=== PATIENT | female | born 1995 | race Caucasian/White ===

== ENCOUNTER → 2022-01-27 15:04 | Outpatient (CLI) | payer OTHER, SELFPAY ==
[2022-01-27 15:38] LABS: Add Manual Diff / Slide Review NO; Basophils Absolute Auto 0 /uL (0-100); Basophils Percent Auto 0.2 % (0-2); Eosinophils Absolute Auto 100 /uL (0-450); Eosinophils Percent Auto 1.4 % (2-4); Hematocrit 35.1 % (36-46); Hemoglobin 12.1 g/dL (12.0-16.0); Lymphocytes Absolute Auto 900 /uL (1100-4500); Lymphocytes Percent Auto 11.4 % (25-40); Mean Corpuscular HGB Conc 34.6 % (30-36); Mean Corpuscular Hemoglobin 30.2 PG (26-34); Mean Corpuscular Volume 87.2 fL (80-100); Monocytes Absolute Auto 500 /uL (0-900); Monocytes Percent Auto 6.7 % (3-14); Neutrophils Absolute Auto 6400 /uL (1500-7000); Neutrophils Percent Auto 80.3 % (50-75); Platelet Count 238 X10^3/uL (150-400); Red Blood Cell Count 4.02 X10^6/uL (4.0-5.2); Red Cell Distribution Width 13.5 % (11.6-14.8)
[2022-01-27 16:30] LABS: Appearance Urine UA CLEAR; Bilirubin Urine UA NEGATIVE (NEGATIVE); Color Urine UA YELLOW; Glucose Urine UA NEGATIVE (Negative); Ketones Urine UA NEGATIVE (NEGATIVE); Leukocyte Esterase Urine UA NEGATIVE (NEGATIVE); Nitrite Urine UA NEGATIVE (Negative); Occult Blood Urine UA NEGATIVE (Negative); Protein Urine UA NEGATIVE (Negative); Specific Gravity Urine UA <=1.005 (1.000-1.035); Urobilinogen Urine UA 0.2 E.U./dL (0.2)
[2022-01-27 16:31] LABS: pH Urine UA 6.5 (4.5-8.0)
[2022-01-28 08:06] LABS: RPR Screen Non Reactive (Non Reactive)
[2022-01-28 08:09] LABS: Varicella IgG Antibody 309 index (Immune >165)
[2022-01-28 17:29] LABS: HIV 1 & 2 Ab/Ag 4th Gen Combo NEGATIVE (NEGATIVE); Hep C Virus Ab w/Reflex Quant NEGATIVE s/c (NEGATIVE); Hepatitis B Surface Antigen NEGATIVE s/c (NEGATIVE)
== END ==
PROVIDERS: Referring Provider Family Medicine; Visit Provider Family Medicine
DX: Z34.01 Encounter for supervision of normal first pregnancy, first trimester (principal)
CPT/HCPCS: 36415; 80055; 81003; 86787; 86803; 86850; 86900; 86901; 87086; 87389

== ENCOUNTER → 2022-02-18 11:29 | Outpatient (CLI) | payer OTHER, SELFPAY ==
--- NOTE | 2022-02-18 11:29 | DI.US.S_ITS ---
PROCEDURE: US OB >= 14 WEEKS FETUS INDICATIONS: ANATOMY SCREEN OUTSIDE/PRIOR DATING DATA: Last menstrual period (LMP): 10/11/2021. LMP-based estimated date of delivery (CHECO): 07/18/2022. First dating scan (date and location): This exam. Estimated date of delivery (CHECO) from first dating scan: 07/15/2022. TECHNIQUE: Real-time scanning was performed of the fetus, with image documentation and biometric measurements. Endovaginal scanning: Not performed. COMPARISON: None. FINDINGS: General: A single living intrauterine gestation is present. Presentation: Variable. Placenta: Placental position is posterior. Question low-lying placenta. Amniotic fluid index: 11.0 cm, normal range is 5-24 cm. Single deepest vertical pocket is 3.0 cm. heart rate: 143 beats per minute. Maternal cervical canal: 4.5 cm long. Normal lower limit is 2.5 cm. biometrics: Biparietal diameter: 19 weeks 6 days Head circumference: 19 weeks 1 day Abdominal circumference: 18 weeks 6 days Femur length: 18 weeks 2 days Clinically estimated gestational age: 18 weeks 4 days Composite gestational age from present scan: 19 weeks 0 day Estimated weight and percentile: 252; 52% Anatomic survey: Neuro: Ventricles are non-dilated at less than 10 mm. Cisterna magna is normal at 3-11 mm. Cerebellum is normal in size and morphology. Nuchal skin fold: Normal at less than 6 mm between 14-21 weeks gestational age. Face: Suboptimally visualized. Spine: No evidence for spina bifida. Heart: Suboptimally visualized. Diaphragm: Suboptimally seen. Stomach: Left-sided stomach is present. Kidneys: No hydronephrosis. Normal is less than 5 mm in 2nd trimester, less than 7 mm in 3rd trimester. Cord: Suboptimally seen. Bladder: Normal in size. Extremities: Suboptimally seen. IMPRESSION: 1. A single living intrauterine gestation with ultrasound dating concordant with clinical dating. 2. Question low-lying placenta. Recommend follow-up imaging. 3. Limited anatomic survey due to maternal body habitus and position. We strive to produce accurate, complete, and clear reports of imaging services. To assist us in improving patient care, this report was composed using standard report templates and voice recognition software. Therefore, it may contain abnormal punctuation, insertions and/or omissions. Occasional wrong-word or sound-alike substitutions may occur. Though we review the report and make efforts to correct it, we do recommend that the report be read carefully in proper context to recognize any text inaccuracies. Dictated by: Nicola Worthington M.D. on 02/18/2022 at 14:54 Approved by: Nicola Worthington M.D. on 02/18/2022 at 15:01
== END ==
PROVIDERS: Referring Provider Family Medicine; Visit Provider Family Medicine
DX: Z34.92 Encounter for supervision of normal pregnancy, unspecified, second trimester (principal); Z3A.19 19 weeks gestation of pregnancy
CPT/HCPCS: 76811

== ENCOUNTER → 2022-03-09 13:41 | Outpatient (CLI) | payer OTHER, SELFPAY ==
--- NOTE | 2022-03-09 13:43 | DI.US.S_ITS ---
PROCEDURE: US OB FOLLOW UP INDICATIONS: FOLLOW UP ANATOMY OUTSIDE/PRIOR DATING DATA: Last menstrual period (LMP): 10/11/2021. LMP-based estimated date of delivery (CHECO): 07/18/2022. First dating scan (date and location): No 1st trimester ultrasound. Estimated date of delivery (CHECO) from first dating scan: N/A The calculations are made using the LMP CHECO of 07/18/2022. TECHNIQUE: Real-time scanning was performed of the fetus, with image documentation and biometric measurements. Endovaginal scanning: Not performed COMPARISON: [facility], OB >= 14 WEEKS FETUS, 02/18/2022, 12:32. FINDINGS: General: A single living intrauterine gestation is present. Presentation: Breech. Placenta: Placental position is posterior , without previa. Amniotic fluid index: 15.9 cm, normal range is 5-24 cm. Single deepest vertical pocket is 5.6 cm. heart rate: 143 beats per minute. Maternal cervical canal: 3.8 cm long. Normal lower limit is 2.5 cm. Clinically estimated gestational age: 21 weeks 2 days Other: Profile, face, orbits, nose and lips, four-chamber heart, RVOT, LVOT, cord insertion, placental cord insertion, diaphragm, stomach, and extremities appear within normal limits. There is no evidence of low lying placenta. Technically difficult study. IMPRESSION: 1. Living 2nd trimester intrauterine . 2. This study found no abnormalities, and completed a normal anatomy survey. 3. Technically difficult study. We strive to produce accurate, complete, and clear reports of imaging services. To assist us in improving patient care, this report was composed using standard report templates and voice recognition software. Therefore, it may contain abnormal punctuation, insertions and/or omissions. Occasional wrong-word or sound-alike substitutions may occur. Though we review the report and make efforts to correct it, we do recommend that the report be read carefully in proper context to recognize any text inaccuracies. Dictated by: Jamil Ocampo M.D. on 03/09/2022 at 17:09 Approved by: Jamil Ocampo M.D. on 03/09/2022 at 17:14
== END ==
PROVIDERS: PCP Family Medicine; Referring Provider Family Medicine; Visit Provider Family Medicine
DX: Z36.2 Encounter for other antenatal screening follow-up (principal); Z3A.21 21 weeks gestation of pregnancy
CPT/HCPCS: 76816

== ENCOUNTER → 2022-04-21 07:30 | Outpatient (CLI) | payer OTHER, SELFPAY ==
[2022-04-21 09:44] LABS: Add Manual Diff / Slide Review NO; Basophils Absolute Auto 0 /uL (0-100); Basophils Percent Auto 0.2 % (0-2); Eosinophils Absolute Auto 100 /uL (0-450); Eosinophils Percent Auto 1.5 % (2-4); Hematocrit 33.1 % (36-46); Hemoglobin 11.4 g/dL (12.0-16.0); Lymphocytes Absolute Auto 700 /uL (1100-4500); Lymphocytes Percent Auto 7.9 % (25-40); Mean Corpuscular HGB Conc 34.6 % (30-36); Mean Corpuscular Hemoglobin 30.6 PG (26-34); Mean Corpuscular Volume 88.5 fL (80-100); Monocytes Absolute Auto 500 /uL (0-900); Monocytes Percent Auto 5.5 % (3-14); Neutrophils Absolute Auto 7700 /uL (1500-7000); Neutrophils Percent Auto 84.9 % (50-75); Platelet Count 266 X10^3/uL (150-400); Red Blood Cell Count 3.74 X10^6/uL (4.0-5.2); Red Cell Distribution Width 14.3 % (11.6-14.8); White Blood Cell Count 9.1 X10^3/uL (4.5-11.0)
[2022-04-21 10:22] LABS: GTT (PREG) 1 Hour PP 50gm Dose 115 mg/dL (76-139)
== END ==
PROVIDERS: PCP Family Medicine; Referring Provider Family Medicine; Visit Provider Family Medicine
DX: Z34.90 Encounter for supervision of normal pregnancy, unspecified, unspecified trimester (principal); Z3A.26 26 weeks gestation of pregnancy
CPT/HCPCS: 36415; 82950; 85025

== ENCOUNTER → 2022-05-28 13:11 | Outpatient (CLI) | payer OTHER, SELFPAY ==
[2022-05-28 14:21] LABS: Add Manual Diff / Slide Review NO; Basophils Absolute Auto 0 /uL (0-100); Basophils Percent Auto 0.2 % (0-2); Eosinophils Absolute Auto 100 /uL (0-450); Hemoglobin 11.8 g/dL (12.0-16.0); Lymphocytes Absolute Auto 900 /uL (1100-4500); Lymphocytes Percent Auto 9.1 % (25-40); Mean Corpuscular HGB Conc 33.6 % (30-36); Mean Corpuscular Hemoglobin 29.4 PG (26-34); Mean Corpuscular Volume 87.6 fL (80-100); Monocytes Absolute Auto 800 /uL (0-900); Monocytes Percent Auto 8.2 % (3-14); Neutrophils Absolute Auto 8000 /uL (1500-7000); Neutrophils Percent Auto 81.5 % (50-75); Platelet Count 233 X10^3/uL (150-400); Red Blood Cell Count 3.99 X10^6/uL (4.0-5.2); Red Cell Distribution Width 14.6 % (11.6-14.8); White Blood Cell Count 9.8 X10^3/uL (4.5-11.0)
[2022-05-28 14:26] LABS: Alanine Aminotransferase 18 IU/L (<35); Albumin 3.5 g/dL (3.5-5.0); Albumin Globulin Ratio 1.1 (1.0-2.8); Alkaline Phosphatase 105 U/L (38-126); Aspartate Aminotransferase 22 IU/L (14-36); Bilirubin Total 0.2 mg/dL (0.2-1.3); Blood Urea Nitrogen 7 mg/dL (7-17); Calcium 8.6 mg/dL (8.4-10.2); Carbon Dioxide 21 mmol/L (22-32); Chloride 105 mmol/L (98-107); Estimated Glomerular Filt Rate > 60 mL/min (>60); Globulin 3.3 g/dL (1.7-4.1); Glucose 127 mg/dL (70-100); HEMOLYSIS < 15 (0-50); Potassium 3.9 mmol/L (3.4-5.1); Sodium 133 mmol/L (137-145); Total Protein 6.8 g/dL (6.3-8.2)
[2022-05-28 15:30] LABS: Protein (Total) Urine Random 11 mg/dL (0-12)
== END ==
PROVIDERS: PCP Family Medicine; Referring Provider Family Medicine; Visit Provider Family Medicine
DX: O16.9 Unspecified maternal hypertension, unspecified trimester (principal)
CPT/HCPCS: 36415; 80053; 82570; 84156; 85025

== ENCOUNTER → 2022-06-23 16:21 | Outpatient (CLI) | payer OTHER, SELFPAY ==
[2022-06-24 16:04] LABS: Strep Grp B PCR POS for Grp B Strep
== END ==
PROVIDERS: PCP Family Medicine; Visit Provider Family Medicine
DX: Z36.85 Encounter for antenatal screening for Streptococcus B (principal)
CPT/HCPCS: 87653

== ENCOUNTER 2022-07-20 06:57 | Inpatient (IN) | payer OTHER, SELFPAY ==
--- NOTE | 2022-07-20 07:51 | P.HPOB_ITS ---
OB HPI Date/Time Date of admission: 07/20/22 Date Patient Seen: 07/20/22 Time Patient Seen: 07:52 History of Present Condition Chief complaint: INDUCTION : 1 Para: 0 Narrative: Irina Castillo is a 27 year old primigravida admitted now at 40+1 weeks EGA for induction due to intermittently elevated systolic BP and peripheral edema. PIH/PEC labs have been negative thus far and her BP's haven't met criteria for gestational HTN. PNC has been largely unremarkable with firm dating and appropriate milestones. GBS is positive. Indications Indication for induction OB: other (Elective) History of Present care: good care Dating criteria: LMP confirmed by 1st trimester US Ultrasounds: normal 1st trimester US and normal mid trimester US Obstetrical complications: other (Intermittent elevation of systolic blood pressure, edema) Medical complications: none Preadmission Labs Blood type: O (+) positive -: Antibody screen: negative, GBS status: positive, HBsAG: negative, HIV: negative and RPR/VDLR: negative -: Chlamydia screen: not detected and Gonorrhea screen: not detected -: Rubella: immune and Varicella: immune HCT: 35.0 HCAB: negative PAP: Normal Quad screen: Normal 1 hr GTT: 115 Prior (ies) History: N/A Evaluation Evaluation Baseline heart rate: 130 Variability: Moderate (11-25) monitor accelerations: Present Monitor Decelerations: Absent Category of Tracing: Reactive Dilation (cm): 3 Effacement (%): 80 Dilation: 3-4 cm Effacement: >/=80% station: -3 Position of cervix: posterior Consistency: soft Ross score: 7 [facility] Surgical History (Updated 12/15/21 @ 15:19 by Bria Jackson RN) History of tonsillectomy Family History (Updated 12/15/21 @ 15:17 by Bria Jackson RN) Grandmother Ovarian cyst Mother Ovarian torsion Family/Other FH: multiple miscarriages or stillbirths Social History marital status: number of children: 0 household members: spouse lives independently: Yes housing: house pets and animals: Yes (3 dogs, 2 cats. 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[facility]) special jonas needs: No travel history: recent seatbelt use: always helmet use: Yes water heater temp set < 120 deg: Yes (Will check and adjust if needed ) working smoke detector in home: Yes fire extinguisher in home: Yes carbon monox detector in home: Yes firearms in home: Yes firearms unloaded and locked: Yes do you feel safe at home: Yes Smoking Status: Former smoker second hand exposure: No alcohol intake: former substance use type: does not use during the past year weight has: remained stable well-balanced diet: daily or most days daily servings fruits/ve-4 caffeine: Yes Type(s) of exercise: walking Meds Home Medications and Allergies Home Medications Medication Instructions Recorded Confirmed Type omega 1-wig-zor-fish oil 300 1 cap PO DAILY 12/15/21 06/30/22 History mg-1,000 mg capsule (Fish Oil) prenat.vits,sarai,izr-cnhg-avagc 1 tab PO DAILY 12/15/21 06/30/22 History pyridoxine (vitamin B6) 25 mg 25 mg PO BID 12/15/21 06/30/22 History tablet Allergies Allergy/AdvReac Type Severity Reaction Status Date / Time No Known Allergies Allergy Verified 06/30/22 16:27 OB Exam HENND Head: normal to inspection, normocephalic and atraumatic Eyes General: appearance normal, both eyes and all related structures Resp Effort & Inspection: normal respiratory effort and able to speak in complete sentences Auscultation: clear to auscultation bilaterally Cardio Rate: regular rate Rhythm: regular rhythm Heart Sounds: S1 normal, S2 normal and no murmurs Extremities Lower extremity: Yes normal to inspection GI Inspection: normal to inspection Palpation: Yes soft, Yes no hepatosplenomegaly and No tender Uterus Location (Fundal Height): 37 Estimated Weight (lbs): 8 Objective Labs Result Diagrams: 07/20/22 08:30 Assessment and Plan Assessment and Plan Assessment and Plan narrative: ASSESSMENT 1. Intrauterine , maria, vertex, 40+1 wks EGA 2. Edema 3. GBS + 4. Intermittently elevated systolic BP; no evidence of PEC PLAN 1. Admit for ripening/induction per Dr. Castelan's plan 2. GBS prophylaxis 3. Will initiate ripening w/ PO Cervidil so she can continue to take in PO then transition to Pitocin when BS more favorable 4. PEC/PIH labs: PLT 200k, LFT's normal, Uric Acid 5.8, Prot:Creat ratio .2 5. See orders
[2022-07-20 08:29] VITALS: BP 135/78
[2022-07-20 08:52] LABS: Add Manual Diff / Slide Review NO; Basophils Absolute Auto 100 /uL (0-100); Basophils Percent Auto 1.2 % (0-2); Eosinophils Absolute Auto 200 /uL (0-450); Eosinophils Percent Auto 1.6 % (2-4); Hematocrit 36.4 % (36-46); Hemoglobin 12.1 g/dL (12.0-16.0); Lymphocytes Absolute Auto 700 /uL (1100-4500); Lymphocytes Percent Auto 7.6 % (25-40); Mean Corpuscular HGB Conc 33.1 % (30-36); Mean Corpuscular Hemoglobin 28.9 PG (26-34); Mean Corpuscular Volume 87.1 fL (80-100); Monocytes Absolute Auto 600 /uL (0-900); Monocytes Percent Auto 6.9 % (3-14); Neutrophils Absolute Auto 7700 /uL (1500-7000); Neutrophils Percent Auto 82.7 % (50-75); Platelet Count 200 X10^3/uL (150-400); Red Blood Cell Count 4.18 X10^6/uL (4.0-5.2); Red Cell Distribution Width 15.5 % (11.6-14.8); White Blood Cell Count 9.4 X10^3/uL (4.5-11.0)
[2022-07-20 08:58] LABS: COVID19 -Nasal RAPID Negative (Negative)
[2022-07-20] MEDS: miSOPROStoL 100 MCG TABLET 50 MCG PO (09:22)
[2022-07-20 09:24] LABS: Alanine Aminotransferase 18 IU/L (<35); Albumin 3.3 g/dL (3.5-5.0); Albumin Globulin Ratio 1.1 (1.0-2.8); Alkaline Phosphatase 143 U/L (38-126); Aspartate Aminotransferase 22 IU/L (14-36); Bilirubin Total 0.2 mg/dL (0.2-1.3); Globulin 3.1 g/dL (1.7-4.1); HEMOLYSIS < 15 (0-50); Total Protein 6.4 g/dL (6.3-8.2); Uric Acid 5.8 mg/dL (2.5-6.2)
--- NOTE | 2022-07-20 12:53 | PM.OBPNLAB ---
Date/Time Date Patient Seen: 07/20/22 Time Patient Seen: 12:53 Pain Control Pain control: tolerating well Comments: Patient is sleeping Pelvic Exam Dilation (cm): 3 Effacement (%): 80 station: -3 Amniotic membrane status: Intact Comments: Intermittent monitoring. Cervical exam not yet repeated Contractions Contractions on admission: none Monitor mode: External Contraction pattern: Irregular Contraction intensity: Mild Status status: Category l Heart Rate Baseline: 130 Monitor Accelerations: Present Monitor Decelerations: Absent Monitor Variability: Moderate Assessment and Plan Assessment: other (Ripening ongoing) Comments: Will re-assess cervix @ 1500 and initiate GBS prophylaxis. Further decisions re: continuing cytotec vs. transition to Pitocin will be made at that time.
[2022-07-20] MEDS: PENICILLIN G POTASSIUM 5,000,000 UNIT in DEXTROSE 5% IN WATER 250 ML 250 UNIT IV (14:24)
[2022-07-20] MEDS: LACTATED RINGERS 1,000 ML 100 ML IV ×2 (14:25→20:21)
--- NOTE | 2022-07-20 14:38 | PM.OBPNLAB ---
Date/Time Date Patient Seen: 07/20/22 Time Patient Seen: 14:38 Pain Control Pain control: tolerating well Pelvic Exam Dilation (cm): 3 Effacement (%): 90 station: -3 Amniotic membrane status: Ruptured (SROM 1400, clear fluid) Contractions Contractions on admission: none Monitor mode: External Contraction pattern: Irregular Contraction phase: Resting Contraction intensity: Mild Status status: Category l Heart Rate Baseline: 135 Monitor Accelerations: Present Monitor Decelerations: Absent Monitor Variability: Moderate Assessment and Plan Assessment: other Plan: begin patient augmentation Comments: With SROM and contractions from Cytotec subsiding, will initiate Pitocin augmentation. IV PCN also initiated @ 1400.
[2022-07-20] MEDS: OXYTOCIN PREMIX 30 UNIT/500 ML PLAST..BAG IV (15:08)
[2022-07-20] MEDS: PENICILLIN G POTASSIUM 3,000,000 UNIT/50 ML FROZ.PIGGY 100 UNIT IV ×2 (18:38→22:32)
[2022-07-20] MEDS: ONDANSETRON 4 MG/2 ML INJ IV (20:44)
[2022-07-20] MEDS: FENT 2MCG/ML BUPIV 0.125% EPI 200 MCG/100 ML PLAST..BAG 6 MCG EPIDURAL (20:45)
--- NOTE | 2022-07-20 23:30 | PM.OBPNLAB ---
Date/Time Date Patient Seen: 07/20/22 Time Patient Seen: 09:05 Pain Control Pain control: epidural Comments: Now comfortable with an epidural. GBS adequately treated x 2 doses. VS: BP 140/80, HR 80bpm, T 98.4F temporal Pelvic Exam Dilation (cm): 7 Effacement (%): 90 station: -2 Amniotic membrane status: Leaking (SROM 1400, clear fluid) Contractions Date/Time contractions began: contractions are coupling Monitor mode: External Pitocin rate (mU/min): 4 Contraction frequency (min): 2 Contraction duration (min): 1 Contraction pattern: Irregular Contraction phase: Resting Contraction intensity: Mild Status status: Category ll Heart Rate Baseline: 125 Monitor Accelerations: Present Monitor Decelerations: Variable Monitor Variability: Moderate Assessment and Plan Assessment: active labor Plan: continuous present management
--- NOTE | 2022-07-21 01:28 | P.PCNOB_ITS ---
Events: Labor Induction and Meconium Stained Fluid Labor & Delivery Delivery date: 07/21/22 Intrapartal Events: None Cervical ripening method: per misoprostal protocol Induction method: per pitocin protocol Delivery augmentation: pitocin Delivery monitor: external FHT and external uterine Route of delivery: Episiotomy description: None L&D Laceration Description: None Quantitative Blood Loss: 25 Anesthesia Type: Epidural Narrative: Irina labored well with an epidural, pitocin (max dose 8mu/min) and GBS prophylaxis x3 completed doses. Pushing was initiated at C/C/+1. Cat II FHR throughout second stage. Coaching, encouragement and strong maternal efforts led to NSVB of a vigorous baby boy in BOBBY position over an intact vagina and perineum. There was a compound right hand and a single loose nuchal cord. The shoulders delivered without additional maneuvers. Copious terminal meconium was noted. [place] was placed on maternal abdomen for drying and skin to skin. Remaining 30 units of pitocin in 500mL LR was increased to 300mL/hr for active management of the third stage of labor. After cessation of pulsation, the cord was double clamped by CNM and cut by FOB. Cord blood sample was collected. Gentle cord traction and single maternal push led to spontaneous, Schultze, delivery of an apparently intact placenta, membranes and 3VC. Fundus immediately firm and bleeding scant. QBL 25mL. Both mother and baby stable and skin to skin as I left the room. [place] Baby 1: Infant gender: Male Presentation: vertex Position: Right Occiput Anterior Placenta delivery description: Spontaneous Cord Vessel Description: 3 Vessels, Nuchal Cord and Loose score (1 min): 9 score (5 min): 9 weight: 3.264 kg Plan for aftercare: Routine care
[2022-07-21] MEDS: KETOROLAC 30 MG/ML VIAL IV (04:12)
[2022-07-21] MEDS: IBUPROFEN 600 MG TABLET PO ×2 (10:58→15:59)
--- NOTE | 2022-07-21 17:49 | P.DS_ITS ---
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 She received a single dose of oral Cytotec and responded nicely with regular uterine contractions. Early on the afternoon of 07/20/2022 she experienced spontaneous rupture membranes and contraction intensity increased necessitating placement of a continuous lumbar epidural for pain relief in labor. The patient progressed nicely with Pitocin augmentation and early on the morning of 07/21/2022 delivered by Brynn Nur CNM, a viable male with Apgars of 9 and 9 and a weight of 3264 g. Following delivery, both mother and baby have done extremely well with mother experiencing prompt return of bowel and bladder function, she is ambulating independently, tolerating regular diet, and her pain is well relieved with oral ibuprofen. She will be discharged at this time to home in an afebrile normotensive condition after counseling regarding precautionary symptoms, limitations of activity, medications, and plans for follow-up which will be in 6 weeks. She will resume all of her preadmission medications and has been prescribed ibuprofen 600 mg p.o. q.6 hours as needed pain following her delivery. Peripartum Data Infant Delivery Method: Natural Vaginal Laceration Description: None Episiotomy description: None complications: none 1: Gender: Male Status at Discharge Cognitive/behavioral status at discharge: oriented Functional status at discharge: independent ambulation Overall status at discharge: patient is progressing back to baseline Time Spent with Patient Time attestation: Total time spent providing and/or coordinating discharge services: Time spent: Less than 30 minutes Objective Labs Result Diagrams: 07/20/22 08:30 Exam Const General: cooperative and comfortable Nutritional Appearance: average body habitus Orientation: alert and oriented x3 HENMT Head: normal to inspection, atraumatic and abrasion Ears: hearing grossly normal bilaterally Face and sinus: face symmetric Eyes General: appearance normal, both eyes and all related structures Conjunctivae: conjunctivae normal Sclera: sclerae normal EOM: EOM intact bilaterally Neck Neck: normal visual inspection Resp Effort & Inspection: normal respiratory effort and able to speak in complete sentences GI Inspection: normal to inspection Palpation: soft, no hepatosplenomegaly and mass (Firm, mildly tender fundus, U- 5) External Female Exam: other (No significant bleeding noted) Extrem General: no calf tenderness Right lower extremity: edema Left lower extremity: edema Psych Appearance: grossly normal Mental Status: mental status grossly normal Speech and Movement: speech and movement normal Mood: congruent mood Affect: normal affect Attitude: cooperative Thought Process: normal Thought Content: normal Judgment: judgment good Discharge Plan Discharge Plan Patient Disposition: Home Provider Discharge Comment: Please review the written instructions you received when you were discharged from the hospital. Your follow-up appointment with Dr. Castelan should be scheduled for 6 weeks after your delivery. If however in the meanwhile you have any issues, concerns, or problems, please contact Dr. Castelan's office at [phone]. Discharge orders & Medications Prescriptions: New ibuprofen 600 mg Tablet 600 mg PO Q6HR PRN (Reason: Pain, Mild (1-3)) Qty: 60 2RF Continued prenat.vits,sarai,qzk-wlde-[id number] Tablet 1 tab PO DAILY omega 5-fne-fll-fish oil [Fish Oil] 300-1,000 mg capsule 1 cap PO DAILY pyridoxine (vitamin B6) 25 mg tablet 25 mg PO BID Follow up/Referrals: Alice Castelan MD [Primary Care Provider] - Discharge Health Status Multidrug resistant organism: No MDRO Diet/Activity/Treatments Diet: Diet as Tolerated Activity: As tolerated Other treatments: [id number] Tylenol may be also used for additional pain relief. Evru-hvn-tgrsoue stool softeners and/or MiraLax may be used for constipation. Skin/Wound/Dressing Care Report to your healthcare provider any signs of infection, such as:: chills, fever, increased pain, unusual drainage and unusual redness Visit Report/Discharge Packet Instructions: DI for Labor and Delivery, Vaginal , DI for and Nipple Soreness Stand Alone Forms: Discharge: Care Discharge Data Primary Care Provider: Alice Castelan
[2022-07-21 21:10] VITALS: BP 120/66; PULSE 93; RESP 16; TEMP 36.2
== END 2022-07-21 20:55 | disposition home or self-care (01) | DRG 807 ==
PROVIDERS: Obstetrics & Gynecology; Admitting Provider Family Medicine; PCP Family Medicine; Referring Provider Family Medicine; Visit Provider Family Medicine
DX: O99.824 Streptococcus B carrier state complicating childbirth (principal); Z37.0 Single live birth; Z3A.40 40 weeks gestation of pregnancy; O12.04 Gestational edema, complicating childbirth; O99.892 Other specified diseases and conditions complicating childbirth; R03.0 Elevated blood-pressure reading, without diagnosis of hypertension; Z20.822 Contact with and (suspected) exposure to COVID-19
CPT/HCPCS: 36415; 59050; 59200; 80076; 84550; 85025; 86850; 86900; 86901; 87635; C9803; G0379; J1885; J2405; J2540; J2590

== ENCOUNTER → 2022-12-14 10:30 | Outpatient (CLI) | payer OTHER, SELFPAY ==
[2022-12-14 12:29] LABS: Thyroid Stimulating Hormone 1.13 uIU/mL (0.47-4.68)
[2022-12-14 12:34] LABS: Testosterone 27.9 ng/dL (5.71-77.0)
[2022-12-15 09:18] LABS: x Labcorp Estim. Avg Glu (eAG) 117 mg/dL (.); x Labcorp Hemoglobin A1c 5.7 % (4.8-5.6)
[2022-12-16 06:36] LABS: Insulin Level Total 14.1 uIU/mL (2.6-24.9)
== END ==
PROVIDERS: PCP Family Medicine; Referring Provider Family Medicine; Visit Provider Family Medicine
DX: E66.9 Obesity, unspecified (principal); N92.6 Irregular menstruation, unspecified
CPT/HCPCS: 36415; 83036; 83525; 84403; 84443